=== PATIENT | female | born 1945 | race Caucasian/White ===

== ENCOUNTER 2022-09-28 13:48 | Outpatient (REF) | payer MEDICARE, SELFPAY ==
[2022-09-28 15:50] LABS: Anion Gap 12 (12-20); Blood Urea Nitrogen 16 mg/dL (9-16); Calcium 9.7 mg/dL (8.4-10.2); Carbon Dioxide 28 mmol/L (22-29); Chloride 107 mmol/L (96-108); Estimated Glomerular Filt Rate > 60; Glucose Random 81 mg/dL (60-115); Potassium 4.9 mmol/L (3.3-5.1); Sodium 142 mmol/L (135-145); T4 Thyroxine 8.2 ug/dL (4.5-12.0)
[2022-09-28 16:02] LABS: Folate 12.1 ng/mL (> or = 4.0); Vitamin B12 319 pg/mL (200-900)
== END 2022-09-28 13:49 | disposition home or self-care (01) ==
LOC: HO.LAB 13:48
PROVIDERS: PCP Internal Medicine; Visit Provider Psychiatry & Neurology Neurology
DX: G31.84 Mild cognitive impairment of uncertain or unknown etiology (principal)
CPT/HCPCS: 36415; 80048; 82607; 82746; 84436; 84443

== ENCOUNTER 2025-06-12 15:48 | Outpatient (AMB) | payer MEDICARE, SELFPAY ==
--- OUTSIDE RECORDS SUMMARY | 2025-06-11 17:55 | XMS_ITS | Encounter Summary ---
Author Organization [facility] Address [address] [place] [address] Care Team Providers Care Pathology Lab Technician Name Role Phone Constance Dubose MD Primary Care Provider [phone] Encounter Details Date Type Department Care Team (Late st Contact Info) Description 06/11/2025 5:55 PM EDT Ancillary Procedure [facility] - [facility] [address] [facility] [address] [place] [address] Arrived Social History Tobacco Use Types Packs/Day Years Used Date Smoking Tobacco: Every Day Cigarettes 0.5 60.3 Started: 1966 Smokeless Tobacco: Never Alcohol Use Standard Drinks/Week Comments No 0 (1 standard drink = 0.6 oz pur e alcohol) Housing Instability Answer Date Recorde d Are you worried that in the next 2 months you may not have stable housing? No 12/19/2024 Food Access & Nutrition Answer Date Rec orded Do you have access to a vari ety of food including fruits and vegetables? Yes 12/19/2024 Access to Healthcare Answer Date Record ed Within the last 3 months, cherelle w many times did you visit the emergency department for your medical care? 0 12/19/2024 Health Literacy Answer Date Recorded How often do you need to hav e someone help you when you read instructions, pamphlets, or other written material from your doctor or pharmacy? Sometimes 12/19/2024 Caregiver: How often do you need to have someone help you when you read instructions, pamphlets, or other written material from your doctor or pharmacy? Not on file 12/19/2024 Financial Risk Answer Date Recorded How hard is it for you to pa y for the very basics like food, housing, medical care, and air conditioning / heating? Not very hard 12/19/2024 Transportation Answer Date Recorded Has the lack of transportati on kept you from meetings, work, or from getting things needed for daily living? No Has the lack of transportati on kept you from medical appointments or from getting medications? No 12/19/2024 Social Isolation Answer Date Recorded How often do you feel lonely or isolated from th ose around you? Rarely 12/19/2024 Food Risk Answer Date Recorded Within the past 12 months we worried whether our food would run out before we got money to buy more. Never true 12/19/2024 Within the past 12 months th e food we bought just didn't last and we didn't have money to get more. Never true 12/19/2024 Dependent Care Answer Date Recorded Do you need help finding or paying for care for your loved ones. For example, child adolescent care or elderly care for an older adult? No 12/19/2024 Education Answer Date Recorded Do you think completing more education or training, like finishing a GED, going to college, or learning a trade, would be helpful for you? N/A 12/19/2024 Employment and Income Answer Date Recor ded During the last four weeks, have you been actively looking for work? No 12/19/2024 Living Situation Answer Date Recorded What is your living situation? 0 12/19/2024 Comments Unknown Sex and Gender Information Value Date Recorded Sex Assigned at Female 12/26/2024 10:28 AM EDT Legal Sex Female 6:28 PM EST Gender Identity Female 12/26/2024 10:28 AM EDT Sexual Orientation Not on file documented as of this encounter Plan of Treatment Upcoming Encounters Date Type Department Care Team (Late st Contact Info) Description 06/23/2025 2:45 PM EDT Office Visit Internal Medicine - [address] [place] [address] Constance Dubose MD [address] [place] [phone] 10/23/2025 3:00 PM EST Ancillary Procedure [facility] - [address] [place] [id number] documented as of this encounter Procedures Procedure Name Priority Date/Time Associated Diagnosis Comments CARDIAC DEVICE CHECK- REMOTE- MURJ Routine 06/11/2025 5:52 PM EDT documented in this encounter Results * Cardiac device check - Remote- MURJ (06/11/2025 5:52 PM EDT) Date Time Interrogation Session [id number] CV DEVICE CHECK Type Interrogation Session Remote Scheduled CV DEVICE CHECK Implantable Pulse Generator [employer] CV DEVICE CHECK Implantable Pulse Generator Type IPG CV DEVICE CHECK Implantable Pulse Generator Model 2272 Assurity MRI(TM) CV DEVICE CHECK Implantable Pulse Generator Serial Number [id number] CV DEVICE CHECK Implantable Pulse Generator Implant Date [id number] CV DEVICE CHECK Battery Remaining Percentage 14.00 CV DEVICE CHECK Battery Remaining Longevity 17.0 CV DEVICE CHECK Battery Voltage 2.860 CV D EVICE CHECK Battery CONVEYOR CONSOLE OPERATOR Trigger 2.600 CV DEVICE CHECK Battery Status Middle of Service CV DEVICE CHECK Xu Statistic RA Percent Paced 47.00 CV DEVICE CHECK Xu Statistic RV Percent Paced 99.00 CV DEVICE CHECK Atrial Tachy Statistic AT/AF [place] Percent 1.00 CV DEVICE CHECK Lead Channel Sensing Intrinsic Amplitude 3.900 CV DEVICE CHECK Lead Channel Setting Sensing Sensitivity 0.50 CV DEVICE CHECK Lead Channel Impedance Value 460 CV DEVICE CHECK Lead Channel Pacing Threshold Amplitude 0.750 CV DEVICE CHECK Lead Channel Pacing Threshold Pulse Width 0.5 CV DEVICE CHECK Lead Channel RA Pacing Threshold Date 2025-06-10 CV DEVICE CHECK Lead Channel Setting Pacing Amplitude 1.750 CV DEVICE CHECK Lead Channel Setting Pacing Pulse Width 0.5 CV DEVICE CHECK Lead Channel Sensing Intrinsic Amplitude 10.600 CV DEVICE CHECK Lead Channel Setting Sensing Sensitivity 2.00 CV DEVICE CHECK Lead Channel Impedance Value 490 CV DEVICE CHECK Lead Channel Pacing Threshold Amplitude 0.625 CV DEVICE CHECK Lead Channel Pacing Threshold Pulse Width 0.5 CV DEVICE CHECK Lead Channel RV Pacing Threshold Date 2025-06-10 CV DEVICE CHECK Lead Channel Setting Pacing Amplitude 0.875 CV DEVICE CHECK Lead Channel Setting Pacing Pulse Width 0.5 CV DEVICE CHECK Xu Setting Mode (NBG Code) DDD CV DEVICE CHECK Xu Setting Lower Rate Limit 60 CV DEVICE CHECK Xu Setting AT Mode Switch Rate 180 CV DEVICE CHECK Xu Setting Maximum Tracking Rate 130 CV DEVICE CHECK Xu Setting Maximum Sensor Rate 130 CV DEVICE CHECK Xu Setting PAV Delay 180 CV DEVICE CHECK Xu Setting KENYATTA Delay 150 CV DEVICE CHECK Date of Service 2025-06-23 CV DEVICE CHECK Anatomical Region Laterality Modality Device Interroga tion 06/10/2025 2:00 AM EDT Impressions 06/11/2025 5:35 PM EDT Normal Remote: With Events * Normal Device Function * Events or Alerts: 1 PAF 8 seconds * Battery: Battery is at 14%, 1.42 yrs * Sensing, impedance and thresholds reviewed * Programmed parameters reviewed * Presenting rhythm reviewed * Heart Rate Histograms reviewed Narrative Procedure Note Edvin Avelar MD - 06/11/2025 IMPRESSION: Normal Remote: With Events * Normal Device Function * Events or Alerts: 1 PAF 8 seconds * Battery: Battery is at 14%, 1.42 yrs * Sensing, impedance and thresholds reviewed * Programmed parameters reviewed * Presenting rhythm reviewed * Heart Rate Histograms reviewed Edvin Avelar MD CV IMPLANTABLE CARDIAC DEVICE PROCEDURES Final Result documented in this encounter Visit Diagnoses Not on filedocumented in this encounter Additional Health Concerns Assessment Noted Time PHQ-9 Depression Total Score: 13 12/19/2 025 4:15 PM EST documented as of this encounter Care Teams Pathology Lab Technician Relationship Specialty Start Date End Date Constance Dubose MD [address] [place] [address] [address] [place] [address] PCP - General Internal Medicine 02/27/25 documented as of this encounter
--- NOTE | 2025-06-12 15:57 | MHC.OFFVIS ---
Intake Visit Reasons: 6 Months/ [facility] Accompanied by: grandson Allergies No Known Allergies Allergy (Verified 06/12/25 15:57) Medication List - Last Reconciled 06/12/25 by Letty Jones CNP memantine 10 mg PO BID sertraline 25 mg PO DAILY HPI Comments Details: She was doing okay. Memory was about the same, forgetful and repetitive. Sometimes she would forget what she had planned and would go do something else. She would put the same time on for the microwave regardless of what she was warming up. Sleep was okay. Mood was okay. Goes out and meets with friends. ? Lives with family, does not cook anymore. Watches TV. Sleeps during day and has trouble sleeping at night. Family noticed she has become more forgetful, asking same questions. In early 12/2022, she had partial left lobectomy for lung CA. She has 2-year history of gradual onset of short-term memory problems and becoming more forgetful. She repeats things, but old memories intact. She used to work in [employer], formerly [employer] and subsequently did [employer]. She has a 6 grade education from [employer]. Review of Systems Const Denies chills, Denies daytime sleepiness, Reports difficulty sleeping, Denies fatigue, Denies fever(s), Denies frequent falls, Denies headache(s), Denies increased appetite, Denies poor appetite, Denies snoring, Denies weakness, Denies weight gain and Denies weight loss Eyes Denies loss of vision ENT Denies vertigo, Denies dizziness, Denies headache(s) and Denies neck pain Card Denies chest pain at rest, Denies chest pain with activity, Denies syncope, Denies leg edema, Denies palpitations, Denies dyspnea and Denies dyspnea on exertion Resp Denies cough, Denies dyspnea, Denies dyspnea on exertion and Denies snoring GI Denies abdominal pain, Denies constipation, Denies heartburn, Denies diarrhea and Denies nausea Denies urinary frequency, Denies urinary incontinence and Denies urinary urgency Musc Denies abnormal gait, Denies back pain, Denies myalgias, Denies arthralgias, Denies neck pain, Denies numbness and Denies tingling Neuro Denies abnormal gait, Denies vertigo, Denies dizziness, Denies syncope, Denies frequent falls, Denies headache(s), Denies lack of coordination, Denies loss of vision, Reports memory loss, Denies numbness, Denies Other visual disturbances, Denies restless legs, Denies seizure-like activity, Denies tingling, Denies paresthesias, Denies tremor(s) and Denies weakness Psych Denies anxiety, Reports depression, Denies auditory hallucinations, Reports memory loss and Denies visual hallucinations Endo Denies fatigue and Denies palpitations Physical Exam Const Other: General Appearance:? normal, in no acute distress. Heart:? S1, S2 normal, no murmurs. Lungs:? clear anteriorly and posteriorly. Musculoskeletal:? normal. Extremities:? no edema. Psych:? alert, as below. Neuro Other: Abnormal Neurological Findings:?MMSE 19/30 Mental Status: alert, as below. Cranial Nerves: Pupils are equal, round, and reactive to light. External ocular muscles are intact. Visual chan are full, no ptosis. Face is symmetrical, no facial weakness or droop. Facial sensations are normal. Tongue protrudes in midline. Palate elevates symmetrically. Shoulder shrugging is normal Motor Examination: Normal muscle tone, bulk and strength. No atrophy or fasciculations. No drift of the extended upper extremities. DTR 2+. Plantars are flexor. Sensory Exam: Normal light touch, temperature, pinprick, vibration, and joint-position sensations. Rhomberg sign is absent. Coordination: No ataxia. No titubation. Gait Exam: Within normal limits. Cerebellar Signs: [id number]-[id number] is okay. Extrapyramidal System: No tremor, rigidity with normal facial expressions. No bradykinesia. No bradyphrenia. Normal arm swing and posture. No propulsion or retropulsion. Speech: Normal. MMSE Level of Consciousness: Alert. Orientation: Knows correct year, month, day and season. Does not know date. Does not know correct city, county and state. Knows correct location. Does not know floor. Registration: Able to register 3 objects. Attention: Serial 7's performed accurately to 93. Recall: Able to recall 1 out of 3 objects. Language: Normal spontaneous speech, fluency, repetition, naming, comprehension, reading, and writing. Total Score: 19/30. Results Reviewed Results Reviewed: 10/07/22 EEG normal. Labs normal. Assessment & Plan Assessment & Plan (1) Alzheimer dementia: Code(s): G30.9 - Alzheimer's disease, unspecified; F02.80 - Dementia in other diseases classified elsewhere, unspecified severity, without behavioral disturbance, psychotic disturbance, mood disturbance, and anxiety Category: Medical Qualifiers: Alzheimer's disease onset: unspecified onset Dementia severity: unspecified severity Dementia behavioral or psychological symptom: without behavioral, psychotic, or mood disturbance or anxiety Qualified Code(s): G30.9 - Alzheimer's disease, unspecified; F02.80 - Dementia in other diseases classified elsewhere, unspecified severity, without behavioral disturbance, psychotic disturbance, mood disturbance, and anxiety Plan: Continue sertraline 25mg 1 tablet daily. Continue memantine 10mg 1 tablet twice a day. Stay physically and socially active. Plan Meds tried: donepezil Medications: New memantine 10 mg PO BID 180 tabs 1RF 90 days sertraline 25 mg PO DAILY 90 tabs 1RF 90 days Coding Level of Care Code Est Pt Level 4 (72475) Diagnoses Alzheimer's dementia without behavioral disturbance, psychotic disturbance, mood disturbance, or anxiety, unspecified dementia severity, unspecified timing of dementia onset G30.9; F02.80 Alzheimer's disease onset: unspecified onset Dementia severity: unspecified severity Dementia behavioral or psychological symptom: without behavioral, psychotic, or mood disturbance or anxiety
--- OUTSIDE RECORDS SUMMARY | 2025-06-12 16:12 | XMS_ITS | Clinical Summary ---
Author Organization [address] [facility] Address [address] [place] [address] Phone Care Team Providers Care Inspector Filters Name Role Phone Constance Dubose MD Primary Care Provider [phone] Allergies No known active allergies Medications sertraline HCl (SERTRALINE ORAL) Take by mouth. Active traZODone (DESYREL) 50 mg tablet Take 1 tablet (50 mg total) by mouth at bedtime. 02/29/2024 Active aspirin 81 mg chewable tablet Take 1 Tablet by mouth daily. 10/12/2022 Active Active Problems Problem Noted Date Diagnosed Date History of lung cancer 01/09/2025 Assessment & Plan (01/14/2025 2:44 PM EDT): Ms. Mckee is an 79-year-old female who had a robotic left lower lobe wedge resection in December 2022 for stage Ib adenocarcinoma. No adjuvant treatment was recommended. The patient's most recent surveillance chest CT scan performed in December 2024 shows no new, or worsening, pulmonary nodule or thoracic adenopathy to suggest recurrence or new disease. We will continue with routine chest CT surveillance the next of which will be in 1 year, December 2025. Patient will be seen in office after that scan. 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 Followed by remote monitoring using a model 1 remote monitoring system. 4 years of battery longevity. She is pacemaker dependent. Last Assessment & Plan: Continue remote monitoring and in office checks. Pacemaker 08/14/2018 Adrenal adenoma 06/01/2018 Essential hypertension 05/02/2018 Overview (09/05/2024): Last Assessment & Plan: Continue losartan and a low-sodium diet. Cigarette smoker 04/12/2018 Assessment & Plan (01/14/2025 2:47 PM EDT): Patient has started smoking as of May 2024 and is up to 1 pack/day. I spent a total of 10 additional minutes at time of this visit going over smoking cessation including lifestyle changes and therapeutic options. I discussed prescription medication such as Wellbutrin or Chantix, or NRT. Ultimately the patient and her family member decided to try nicotine patches with nicotine lozenges as needed for cravings. I also will be referring the patient to pulmonology in regards to her shortness of breath and wheeze. Multiple pulmonary nodules 04/12/2018 Overview (09/05/2024): Last Assessment & Plan: I had a long discussion with her and her grandson about the findings from her CAT scan and about her history of TB as above. We discussed pulmonary nodules in general and the features that make nodules more or less suspicious for malignancy. These features are size greater than 8 mm, growth over time, and/or spiculations. Given its growth over time and size I do think this is suspicious for early stage lung cancer. We also discussed the diagnosis, staging, and treatment of lung cancer and I gave him a sheet of information about this. Options discussed were continued observation which would be a 3-month follow-up CT scan of the chest versus biopsy but this not a great spot for this versus da Uzma left lower lobe wedge possible lobectomy. Ultimately knowing the risks and benefits of each of these options she opted for the surgical wedge possible lobectomy which will be scheduled in early December. I would like her to see cardiology for risk assessment prior to operation. She also does need pulmonary function testing prior to December. Allergic rhinitis 01/26/2018 Encounters Date Type Department Care Team Description 06/11/2025 5:55 PM EDT Ancillary Procedure [facility] [address] [facility] [address] [place] [address] Arrived 03/14/2025 12:30 PM EDT Ancillary Procedure [facility] [address] [place] [address] from Last 3 Months Immunizations Name Administration Dates Next Due Pneumococcal conjugate 20 va lent (Prevnar 20, PCV 20) 2mo and older 12/20/2024 Surgical History Surgery Date Site/Laterality Comments HYSTERECTOMY PROCEDURE: HISTORICAL HYSTERECTOMY PACEMAKER IMPLANT PROCEDURE: HISTORICAL PACEMAKER CYSTOSCOPY 11/02/2017 PROCEDURE: HISTORICAL CYSTOSCOPY; COMMENT: surveillance negative OTHER SURGICAL HISTORY PROCEDURE: HISTORY OTHER; COMMENT: exploratory lap for peptic ulcer Medical History Medical History Date Comments Pacemaker 06/01/2018 DX:Pacemaker Adrenal adenoma 06/01/2018 DX:Adrenal adeno ma Allergic rhinitis 01/26/2018 DX:Allergic rh initis History of bladder cancer 08/14/2018 DX:His tory of bladder cancer History of Helicobacter pylo ri infection 08/14/2018 DX:History of Helicobacter p ylori infection Hypertension 05/02/2018 DX:Hypertension Lung nodule 10/25/2017 DX:Lung nodule AV block 11/15/2018 DX:AV block Family History Medical History Relation Name Comments Other cancer Mother Stomach Lung cancer Sister Relation Name Status Comments Mother Other grandson Alive Sister Social History Tobacco Use Types Packs/Day Years Used Date Smoking Tobacco: Every Day Cigarettes 0.5 60.3 Started: 1966 Smokeless Tobacco: Never Tobacco Cessation:Ready to Q uit: Not Asked; Counseling Given: Not Answered Alcohol Use Standard Drinks/Week Comments No 0 [...] Record ed Within the last 3 months, ho w many times did you visit the [...] for your loved ones. For example, child and adolescent therapist or elderly care for an older adult? [...] AM EDT Sexual Orientation Not on file Obstetrics History Last Filed Vital Signs Vital Sign Reading Time Taken Comments Blood Pressure 115/66 01/09/2025 11:03 AM EDT Pulse 70 01/09/2025 11:03 AM EDT Temperature 36.5 C (97.7 F) 01/09/2025 11:03 AM EDT Respiratory Rate 16 01/09/2025 11:0 3 AM EDT Oxygen Saturation 97% 01/09/2025 11: 03 AM EDT Inhaled Oxygen Concentration - - Weight 64.3 kg (141 lb 11.2 oz) 025 11:03 AM EDT Height 154.9 cm (5' 1 ) 01/09/2025 11:0 3 AM EDT Body Mass Index 26.77 01/09/2025 11:03 AM EDT Plan of Treatment Upcoming Encounters Date Type Department Care Team (Late st Contact Info) Description 06/23/2025 2:45 PM EDT Office Visit Internal Medicine - [place] [address] [facility] [address] [place] [phone] Constance Dubose MD [address] [place] [address] 10/23/2025 3:00 PM EST Ancillary Procedure [facility] [address] [facility] [address] [place] [address] Health Maintenance Due Date Last Done Comments DTaP,Tdap,and Td Vaccines (1 - Tdap) 1964 Zoster Vaccines (1 of 2) 1963 RSV Immunization Adult Patients (1 - 1-dose 75+ series) 2019 Osteoporosis Screening (Bone Density Screening) 09/24/2022 Hypertension/CHF/CAD Annual BMP Blood Test 01/01/2025 01/02/2024 COVID-19 Vaccine (5 - Moderna risk season) 2025 09/20/2024, 09/06/2021, 01/10/2021, Additional history exists Influenza Vaccine (#1) 2025 , 09/06/2021, 07/29/2020, Additional history exists Medicare Annual Wellness Visit 07/22/2025 07/22/2024 Social Influencers of Health Screening 12/19/2025 12/19/2024 Falls Risk Assessment 12/20/2025 12/20/2024, 024 Cholesterol Screening (Lipid Panel) 07/14/2028 07/14/2023 Lung Cancer Screening (Low Dose CT) Discontinued 11/08/2022 Depression Screening Completed 12/19/2024, 07/22/20 Pneumococcal Vaccine: 50+ Years Completed 12/20/2024, 07/24/2018 HIB Vaccines Aged Out No longer eligi ble based on patient's age to complete this topic HPV Vaccines Aged Out No longer eligi ble based on patient's age to complete this topic Hepatitis A Vaccines Aged Out No long er eligible based on patient's age to complete this topic Hepatitis B Vaccines Aged Out No long er eligible based on patient's age to complete this topic IPV Vaccines Aged Out No longer eligi ble based on patient's age to complete this topic MMR Vaccines Aged Out No longer eligi ble based on patient's age to complete this topic Meningococcal ACWY Vaccine Aged Out N o longer eligible based on patient's age to complete this topic Meningococcal B Vaccine Aged Out No l onger eligible based on patient's age to complete this topic RSV Immunization Patients Under 20 months Aged Out No longer eligible based on patient's age to complete this topic Varicella Vaccines Aged Out No longer eligible based on patient's age to complete this topic Medical Devices Implanted Type Area Towerman Device Identifier Shelf Expiration Date Model / Serial / Lot Abbt-ju 2272 Assurity Mri(Tm) [id number] Implanted: (Quantity not on file) Cardiac Pacemaker [employer] 2272 ASSURITY MRI(TM) / [id number] / Abbt-Ang Assurity Mri [id number] Implanted: (Quantity not on file) Cardiac Pacemaker [employer] [employer] 2272 / [id number] / Procedures Procedure Name Priority Date/Time Associated Diagnosis Comments CARDIAC DEVICE CHECK- REMOTE- MURJ Routine 06/11/2025 5:52 PM EDT CARDIAC DEVICE CHECK- REMOTE- MURJ Routine 03/14/2025 12:26 PM EDT DEPRESSION SCREENING Routine 07/22/2024 FALLS RISK ASSESSMENT Routine 07/22/2024 ANNUAL BMP BLOOD TEST Routine 01/02/2024 LIPID PANEL Routine 07/14/2023 CT LUNG SCREENING LOW DOSE Routine 11/08/2022 4:42 PM EST Personal history of nicotine dependence from Last 3 Months or Most Recently Relevant to Health Maintenance Results * Cardiac device check - Remote- MURJ (06/11/2025 5:52 PM EDT) Only the most recent of2 resultswithin the time period is included. Date Time Interrogation Session [id number] CV DEVICE CHECK Type Interrogation Session Remote Scheduled CV DEVICE CHECK Implantable Pulse Generator [employer]erman [employer] CV DEVICE CHECK Implantable Pulse Generator Type IPG CV DEVICE CHECK Implantable Pulse Generator Model 2272 Assurity MRI(TM) CV DEVICE CHECK Implantable Pulse Generator Serial Number [id number] CV DEVICE CHECK Implantable Pulse Generator Implant Date [id number] CV DEVICE CHECK Battery Remaining Percentage 14.00 CV DEVICE CHECK Battery Remaining Longevity 17.0 CV DEVICE CHECK Battery Voltage 2.860 CV D EVICE CHECK Battery [employer] Trigger 2.600 CV DEVICE CHECK Battery Status Middle of Service CV DEVICE CHECK Xu Statistic RA Percent Paced 47.00 CV DEVICE CHECK Xu Statistic RV Percent Paced 99.00 CV DEVICE CHECK Atrial Tachy Statistic AT/AF [place] Percent 1.00 CV DEVICE CHECK Lead Channel [...] CV IMPLANTABLE CARDIAC DEVICE PROCEDURES Final Result * Falls Risk Assessment (07/22/2024) [facility] Falls Risk Assessment Abstracted us Historical Provider HEALTH MAINTENANCE Final Result * Depression Screening (07/22/2024) Pathologist [facility] Depression Screening Abstracted Historical Provider HEALTH MAINTENANCE Final Result * Annual BMP Blood Test (01/02/2024) Pathologist [facility] Annual BMP Blood Test Abstracted Historical Provider HEALTH MAINTENANCE Final Result * Lipid panel (07/14/2023) [facility] LDL/HDL Ratio 3 0 - 4 Triglycerides 76 0 - 150 mg/dL Cholesterol 148 0 - 200 mg/dL HDL 60 >=40 mg/dL LDL Cholesterol 73 0 - 100 mg/dL Blood Venous blood specimen / Unknown Historical Provider LAB BLOOD ORDERABLES Maricruz l Result * CT LUNG SCREENING LOW DOSE (11/08/2022 4:42 PM EST) Anatomical Region Laterality Modality Computed Tomogra phy 11/08/2022 3:58 PM EST Narrative 11/08/2022 4:42 PM EST [facility] Diagnostic Imaging Department [address] [place] [address] Patient: RYLEEMARY /Age/Sex: 1945 - 77 - F Unit#: [id number] Location/Status: SPDICATLS/REG CLI Mnemonic/Ordering Site: CTLUNGLD/SPCT Ordering Physician: SYEDA GOTTLIEB MD CT Lung Screening Low Dose - 11/08/22 - 1620 History: 77 year-old 56 pack-year current smoker, asymptomatic, for lung cancer screening. Comparison: 09/19/18 Technique: Helical volumetric imaging of the thorax was performed, using low- dose technique, without IV contrast. DLP: 95.89 mGy/cm CTDIvol: 2.85 mGy Digital [employer] Iterative reconstruction technique Findings: Lungs and Airways: The trachea and central bronchial tree remain patent. Focal varicose bronchiectasis and volume loss is again seen within the medial segment of the right middle lobe, unchanged. Diffuse bronchial wall thickening and minimal peripheral mucous plugging is noted. Centrilobular emphysema is again noted. There are coarse reticular nodular partially calcified opacities in the lung apices which are without significant change, consistent with scarring. There is volume loss in the left lower lobe, chronic, with small vessels and relative hyperlucency of the lung parenchyma. This is accompanied by bronchiectasis and peripheral mucous plugging. A 10 mm solid, noncalcified nodule with indistinct margins is present in the superior segment of the left lower lobe, abutting the medial pleural surface and the major fissure, slightly tenting the fissure posteromedially (image 77 series 3). This is suspicious for malignancy. There are rare solid, noncalcified nodules, including a 5 mm juxtamediastinal nodule in the left upper lobe (image 101 series 3), and a 3 mm right lower lobe nodule (image 159), unchanged. Pleura: No pleural or pericardial effusions are seen. Base of neck, mediastinum and heart: The heart remains normal in size. A left subclavian transvenous cardiac pacemaker is again noted, with leads terminating in the right atrium and ventricle. Calcified mediastinal and right hilar lymph nodes are again noted, consistent with old granulomatous disease. No developing thoracic lymphadenopathy is seen. Soft tissues: The overlying soft tissues are unremarkable. Abdomen: This study was performed without contrast and with lower than standard dose. These factors reduce the sensitivity for detection of small lesions in the upper abdomen. Surgical clips are seen around the gastroesophageal junction and cholecystectomy sequelae are noted. A 23 mm right adrenal nodule has CT numbers consistent with an adenoma, unchanged. Impression: 10 mm solid nodule in the superior segment of the left lower lobe with features suspicious for malignancy. Lung RADS 4B: Suspicious - chest CT with or without contrast; PET/CT and/or tissue sampling depending on the probability of malignancy and comorbidities. PET/CT be used when there is a > or = 8 mm solid component. [id number] [id number] [id number] Dictating Physician: CRISELDA LARSON MD Electronically Signed by: CRISELDA LARSON MD Dic Date/Time: 11/08/22 1625 Sign date/Time: 11/08/22 1642 Procedure Note Criselda Larson MD - 11/17/2023 [facility] Diagnostic Imaging Department [address] [place] [address] Patient: MARY MCKEE Reese /Age/Sex: 1945 - 77 - F Unit#: [id number] Location/Status: [facility] Mnemonic/Ordering Site: [facility] Ordering Physician: SYEDA GOTTLIEB MD CT Lung Screening Low Dose - 11/08/22 - 1620 History: 77 year-old 56 pack-year current smoker, asymptomatic, for lungcancer screening. Comparison: 09/19/18 Technique: Helical volumetric imaging of the thorax was performed, usinglow- dose technique, without IV contrast. DLP: 95.89 mGy/cm CTDIvol: 2.85 mGy RenéSimer Iterative reconstruction technique Findings: Lungs and Airways: The trachea and central bronchial tree remain patent.Focal varicose bronchiectasis and volume loss is again seen within the medialsegment of the right middle lobe, unchanged. Diffuse bronchial wall thickeningand minimal peripheral mucous plugging is noted. Centrilobular emphysema isagain noted. There are coarse reticular nodular partially calcified opacities inthe lung apices which are without significant change, consistent withscarring. There is volume loss in the left lower lobe, chronic, with small vesselsand relative hyperlucency of the lung parenchyma. This is accompanied by bronchiectasis and peripheral mucous plugging. A 10 mm solid, noncalcified nodule with indistinct margins is present inthe superior segment of the left lower lobe, abutting the medial pleuralsurface and the major fissure, slightly tenting the fissure posteromedially (image 77series 3). This is suspicious for malignancy. There are rare solid, noncalcified nodules, including a 5 mmjuxtamediastinal nodule in the left upper lobe (image 101 series 3), and a 3 mm right lowerlobe nodule (image 159), unchanged. Pleura: No pleural or pericardial effusions are seen. Base of neck, mediastinum and heart: The heart remains normal in size. Aleft subclavian transvenous cardiac pacemaker is again noted, with leadsterminating in the right atrium and ventricle. Calcified mediastinal and right hilarlymph nodes are again noted, consistent with old granulomatous disease. Nodeveloping thoracic lymphadenopathy is seen. Soft tissues: The overlying soft tissues are unremarkable. Abdomen: This study was performed without contrast and with lower thanstandard dose. These factors reduce the sensitivity for detection of small lesionsin the upper abdomen. Surgical clips are seen around the gastroesophagealjunction and cholecystectomy sequelae are noted. A 23 mm right adrenal nodule has CTnumbers consistent with an adenoma, unchanged. Impression: 10 mm solid nodule in the superior segment of the left lower lobe withfeatures suspicious for malignancy. Lung RADS 4B: Suspicious - chest CT with or without contrast; PET/CTand/or tissue sampling depending on the probability of malignancy andcomorbidities. PET/CT be used when there is a > or = 8 mm solid component. [id number] [id number] [id number] Dictating Physician: CRISELDA LARSON MD Electronically Signed by: CRISELDA LARSON MD Dic Date/Time: 11/08/22 1625 Sign date/Time: 11/08/22 1642 Syeda Gottlieb MD IMG CT PROCEDURES Final Result from Last 3 Months or Most Recently Relevant to Health Maintenance Insurance [place]ICA[place] MEDIC[place]VANTAGE Advance Directives Documents on File Type Date Recorded Patient Lead Medical Technologist Expl anation Health Care Decision (hx) 01/15/2024 AD HALE DIRECTIVE Health Care Decision (hx) 12/25/2022 AD HALE DIRECTIVE Health Care Decision (hx) 12/25/2022 AD HALE DIRECTIVE Health Care Decision (hx) 12/25/2022 AD HALE DIRECTIVE Health Care Decision (hx) 12/21/2022 AD HALE DIRECTIVE Care Teams Inspector Filters Relationship Specialty Start Date End Date Constance Dubose MD [address] [place] [phone] PCP - General Internal Medicine 02/27/25
--- OUTSIDE RECORDS SUMMARY | 2025-06-12 16:12 | XMS_ITS | Clinical Summary ---
Author Organization [facility] Address [address] [place] [address] Care Team Providers Care City Treasurer Name Role Phone Constance Dubose MD Primary Care Provider [phone] Allergies No known active allergies Medications Medication Sig Dispensed Refills Start Date End Date Status amLODIPine (NORVASC) tablet 5 mg Take 5 mg by mouth daily. 0 Active aspirin EC 81 MG tablet Take 81 mg by mouth daily. 0 Active VITAMIN D, ERGOCALCIFEROL, PO Take 50,000 Units by mouth once a week. 0 Active Active Problems No known active problems Social History Tobacco Use Types Packs/Day Years Used Date Smoking Tobacco: Former Cigarettes Smokeless Tobacco: Never Tobacco Cessation:Counseling Given: Not Answered Alcohol Use Standard Drinks/Week Comments No 0 (1 standard drink = 0.6 oz pur e alcohol) Sex and Gender Information Value Date Recorded Sex Assigned at Not on file Gender Identity Not on file Sexual Orientation Not on file Job Start Date Occupation Industry Not on file Not on file Not on file Last Filed Vital Signs Vital Sign Reading Time Taken Comments Blood Pressure 102/48 01/16/2023 3:13 PM EDT Pulse 60 01/16/2023 3:13 PM EDT Temperature 36.6 C (97.9 F) 01/16/2023 3:13 PM EDT Respiratory Rate - - Oxygen Saturation 96% 01/16/2023 3:13 PM EDT Inhaled Oxygen Concentration - - Weight 55.3 kg (122 lb) 01/16/2023 3:13 PM EDT Height 156.2 cm (5' 1.5 ) 09/25/2018 9:27 AM EST Body Mass Index 22.68 09/25/2018 9:27 AM EST Plan of Treatment Health Maintenance Due Date Last Done Comments Depression Screening 1956 Preventative Health Evaluation 1962 DTap / Tdap / Td (1 - Tdap) 1963 Shingrix-Zoster Vaccine (1 o f 2) 1994 Fall Risk Assessment 2009 Osteoporosis Screening (DEXA Scan) 2009 Pneumococcal Vaccine (1 of 1 - PCV) 2009 RSV Adult > 60+ Yrs or (1 - 1-dose 75+ series) 2019 COVID-19 Vaccine (4 - 2023-2 5 season) 2024 09/06/2021, 01/10/2021, 12/13/2020 Influenza Vaccine (#1) 2025 Hepatitis B Vaccines Aged Out No long er eligible based on patient's age to complete this topic RSV Ped < 20 months Aged Out No longe r eligible based on patient's age to complete this topic Care Teams City Treasurer Relationship Specialty Start Date End Date Constance Dubose MD [address] [phone] PCP - General Internal Medicine 09/21/18
--- OUTSIDE RECORDS SUMMARY | 2025-06-12 16:12 | XMS_ITS | Encounter Summary ---
Author Organization [facility] Address [address] [place] [address] Care Team Providers Care Emergency Room Physician Name Role Phone Constance Dubose MD Primary Care Provider [phone] Encounter Details Date Type Department Care Team Description 01/27/2023 Social Work [facility] [address] [place] [address] Dariusz Willis, MEDICAL PHYSICS RESEARCHER Social History Tobacco Use Types Packs/Day Years Used Date Smoking Tobacco: Former Cigarettes Smokeless Tobacco: Never Alcohol Use Standard Drinks/Week Comments No 0 (1 standard drink = 0.6 oz pur e alcohol) Sex and Gender Information Value Date Recorded Sex Assigned at Not on file Gender Identity Not on file Sexual Orientation Not on file Job Start Date Occupation Industry Not on file Not on file Not on file COVID-19 Exposure Response Date Recorded In the last 10 days, have yo u been in contact with someone who was confirmed or suspected to have Coronavirus/COVID-19? No / Unsure 01/16/2023 2:57 PM EDT documented as of this encounter Plan of Treatment Not on file documented as of this encounter Visit Diagnoses Not on filedocumented in this encounter Care Teams Emergency Room Physician Relationship Specialty Start Date End Date Constance Dubose MD [address] [phone] PCP - General Internal Medicine 09/21/18 documented as of this encounter
--- OUTSIDE RECORDS SUMMARY | 2025-06-12 16:12 | XMS_ITS | Encounter Summary ---
Author Organization [facility] Address [address] [place] [address] Care Team Providers Care Strategic Communications Manager Name Role Phone Constance Dubose MD Primary Care Provider [phone] Encounter Details Date Type Department Care Team (Late st Contact Info) Description 10/15/2024 Lab Requisition [facility] - Main Lab [address] [facility] [place] [address] Boone Elizabeth MD [address] [place] [address] Neoplasm of unspecified behavior of bladder Social History Tobacco Use Types Packs/Day Years Used Date Smoking Tobacco: Every Day Cigarettes 0.5 60.3 Started: 1966 Smokeless Tobacco: Never Alcohol Use Standard Drinks/Week Comments No 0 (1 standard drink = 0.6 oz pur e alcohol) Comments Unknown Sex and Gender Information Value [...] PM EDT Office Visit Internal Medicine - [employer] [address] [place] [phone] Constance Dubose MD [address] [place] [phone] 10/23/2025 3:00 PM EST Ancillary Procedure [facility] - [facility] [address] [facility] [address] [place] [address] documented as of this encounter Procedures Procedure Name Priority Date/Time Associated Diagnosis Comments AP OUTSIDE CONSULT Routine 10/02/2024 12 :00 AM EST Neoplasm of unspecified behavior of bladder documented in this encounter Results * Anatomic pathology outside consult (10/02/2024 12:00 AM EST) Final Diagnosis Urine, Voided ([id number]): Negative for high grade urothelial carcinoma. Results of [employer] fluorescence in situ hybridization (FISH) testing: CEP3: Normal CEP7: Normal CEP17: Normal LSI 9p21: Normal Interpretation: Normal profile Controls stained appropriately. Note: The results are intended as a screening device and should be interpreted in association with other clinical and pathological findings. 10/23/2024 5:14 PM [facility] Clinical Information Malignant neoplasm of bladder, unspecified C67.9, D49.4 [id number] Urine Cytology/FISH (now) 10/23/2024 5:14 PM [facility] Gross Description A. Urine, Voided, : [id number] Received is one ThinPrep slide for cytology screen and one ThinPrep slide for [employer] FISH 10/23/2024 5:14 PM [facility] Disclaimer Unless otherwise specified, all tissue is 10% NB formalin fixed and paraffin embedded. Technical pathology services provided by [facility] at [address], [place] [address] (CLIA #[id number]/Lashanda Rapp MD, Global Clinical Leader) 10/23/2024 5:14 PM EST [facility] Tissue Urine specimen from urethra / Unknown 10/02/2024 10/15/2024 8:42 AM EST Boone Elizabeth MD LAB PATHOLOGY ORDERABLES Final Result [facility] [address] [place] [address], documented in this encounter Visit Diagnoses Diagnosis Neoplasm of unspecified behavior of bladder Encounter for adjustment or management of cardiac device documented in this encounter Care Teams Strategic Communications Manager Relationship Specialty Start Date End Date Constance Dubose MD [address] [phone] PCP - General Internal Medicine 02/27/25 documented as of this encounter
== END 2025-06-12 16:18 | disposition home or self-care (01) ==
LOC: HO.HSM 15:49
PROVIDERS: PCP Internal Medicine; Referring Provider Internal Medicine; Visit Provider Registered Nurse
DX: G30.9 Alzheimer's disease, unspecified (principal); F02.80 Dementia in other diseases classified elsewhere, unspecified severity, without behavioral disturbance, psychotic disturbance, mood disturbance, and anxiety
CPT/HCPCS: 99214

== ENCOUNTER → 2025-06-12 15:48 | Outpatient (BNVA) | payer MEDICARE, SELFPAY | PROVIDERS: PCP Internal Medicine; Referring Provider Internal Medicine; Visit Provider Registered Nurse | DX: G30.9 Alzheimer's disease, unspecified (principal); F02.80 Dementia in other diseases classified elsewhere, unspecified severity, without behavioral disturbance, psychotic disturbance, mood disturbance, and anxiety; Z79.899 Other long term (current) drug therapy | CPT/HCPCS: 99212 ==